=== PATIENT | female | born 1990 | race African-American/Black ===

== ENCOUNTER 2020-01-01 14:07 | Emergency (ER) | payer OTHER ==
[~2020-01-01] VITALS: Ht 162.6 cm; Wt 113.6 kg
[2020-01-01 14:25] VITALS: BP 163/99
--- NOTE | 2020-01-01 15:02 | PHYS DOC ---
Past Medical History Past Medical History: No Pertinent History Past Surgical History: Smoking Status: Never Smoker Alcohol Use: None General Adult EDM: Chief Complaint: LOWER EXT PAIN HPI: HPI: Patient is a 29 year old female presented to the ER, WANTED TO HAVE HER WOUND DRESSING REDRESS. Patient had ACL surgery of her left knee on 12/29/19. Patient felt like the dressing has been migrating down and left wound exposed to the rough surface of the knee immobilizer. no chest pain, no shortness of air, no calf swelling. Review of Systems: Review of Systems: Constitutional: Denies fever or chills. [] Eyes: Denies change in visual acuity. [] HENT: Denies nasal congestion or sore throat. [] Respiratory: Denies cough or shortness of breath. [] Cardiovascular: Denies chest pain or edema. [] GI: Denies abdominal pain, nausea, vomiting, bloody stools or diarrhea. [] : Denies dysuria. [] Musculoskeletal: Denies back pain or joint pain. [] Integument: Denies rash. [] Neurologic: Denies headache, focal weakness or sensory changes. [] Endocrine: Denies polyuria or polydipsia. [] Lymphatic: Denies swollen glands. [] Psychiatric: Denies depression or anxiety. [] Heart Score: Risk Factors: Risk Factors: DM, Current or recent (<one month) smoker, HTN, HLP, family history of CAD, obesity. Risk Scores: Score 0 - 3: 2.5% MACE over next 6 weeks - Discharge Home Score 4 - 6: 20.3% MACE over next 6 weeks - Admit for Clinical Observation Score 7 - 10: 72.7% MACE over next 6 weeks - Early Invasive Strategies Allergies: Allergies: Allergies Coded Allergies Type Severity Reaction Last Updated Verified No Known Drug Allergies 01/01/20 No Physical Exam: PE: Constitutional: Well developed, well nourished, no acute distress, non-toxic appearance. [] HENT: Normocephalic, atraumatic, bilateral external ears normal, oropharynx moist, no oral exudates, nose normal. [] Eyes: PERRLA, EOMI, conjunctiva normal, no discharge. [] Neck: Normal range of motion, no tenderness, supple, no stridor. [] Cardiovascular:Heart rate regular rhythm, no murmur [] Lungs & Thorax: Bilateral breath sounds clear to auscultation [] Abdomen: Bowel sounds normal, soft, no tenderness, no masses, no pulsatile masses. [] Skin: Warm, dry, no erythema, no rash. [] Back: No tenderness, no CVA tenderness. [] Extremities: the dressing on left knee did migrated to below the knee, exposed the wound, sutures in place, no broken sutures, no bleeding. Neurologic: Alert and oriented X 3, normal motor function, normal sensory function, no focal deficits noted. [] Psychologic: Affect normal, judgement normal, mood normal. [] Current Patient Data: Vital Signs: Vital Signs Date Time Temp Pulse Resp B/P (MAP) Pulse Ox O2 Delivery O2 Flow Rate FiO2 01/01/20 14:25 98.5 102 22 163/99 (120) 99 Room Air 98.5 EKG: EKG: [] Radiology/Procedures: Radiology/Procedures: [] Course & Med Decision Making: Course & Med Decision Making Pertinent Labs and Imaging studies reviewed. (See chart for details) the wound was redress with gauze and kerlex,padding. Dragon Disclaimer: Varioptic Disclaimer: This electronic medical record was generated, in whole or in part, using a voice recognition dictation system. Departure Departure Impression: Primary Impression: Post-operative pain Additional Impression: Redressing wound Disposition: 01 HOME, SELF-CARE Condition: IMPROVED Patient Instructions: Pain Relief Preoperatively and Postoperatively, Wound Check Additional Instructions: Please call your orthopedic surgeon for further evaluation and treatment instruction. Justicifation of Admission Dx: Justifications for Admission: Justification of Admission Dx: N/A KIM ANDREWS DO Jan 01, 2020 15:02
== END 2020-01-01 15:10 | disposition home or self-care (01) ==
LOC: ER 14:07
DX: S81.802D Unspecified open wound, left lower leg, subsequent encounter (principal); G89.18 Other acute postprocedural pain; X58.XXXD Exposure to other specified factors, subsequent encounter
CPT/HCPCS: 99281